=== PATIENT | male | born 1990 | race Caucasian/White ===

== ENCOUNTER 2018-08-01 12:54 | Emergency (ER) | payer MEDICAID ==
[2018-08-01 13:10] VITALS: BP 134/82; PULSE 96; RESP 18; TEMP 98.3
[2018-08-01] MEDS ORDERED: KETOROLAC 30 MG/ML 1 ML VIAL IM STA (13:41)
--- NOTE | 2018-08-01 13:42 | ED ---
General Adult HPI - General Chief complaint: Extremity Injury, Upper Stated complaint: Shoulder pain Time Seen by Provider: 08/01/18 13:38 Source: patient, RN notes reviewed, old records reviewed Mode of arrival: ambulatory Limitations: no limitations - History of Present Illness Initial comments: 28-year-old male presenting for evaluation of right shoulder pain. Patient states his symptoms began yesterday morning, woke with this pain. Denies any specific injury. Denies fever or chills. States the pain is worse with movement of the shoulder. Patient has no chronic medical problems. He states that approximately one year ago he had similar episode of right shoulder pain which was resolved with anti-inflammatory medication. Patient is not a diabetic. He is not on any medication currently. Denies fever or chills, denies diaphoresis, denies chest pain or dyspnea. Denies any symptoms in his hand and forearm. - Related Data Previous Rx's Medication Instructions Recorded Ibuprofen [Motrin] 600 mg PO Q8HR PRN #24 tab 08/01/18 Allergies Allergy/AdvReac Type Severity Reaction Status Date / Time No Known Allergies Allergy Verified 08/01/18 13:10 Review of Systems ROS Statement: Those systems with pertinent positive or pertinent negative responses have been documented in the HPI. ROS Other: All systems not noted in ROS Statement are negative. Past Medical History Past Medical History: No Reported History History of Any Multi-Drug Resistant Organisms: None Reported Past Surgical History: No Surgical Hx Reported Past Psychological History: No Psychological Hx Reported Smoking Status: Never smoker Past Alcohol Use History: Occasional Past Drug Use History: None Reported General Exam Limitations: no limitations General appearance: alert, in no apparent distress Head exam: Present: atraumatic, normocephalic Eye exam: Present: normal appearance, PERRL ENT exam: Present: normal exam Neck exam: Present: normal inspection. Absent: tenderness, meningismus Respiratory exam: Present: normal lung sounds bilaterally. Absent: respiratory distress, wheezes Cardiovascular Exam: Present: regular rate, normal rhythm GI/Abdominal exam: Present: soft. 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 There is limited range of motion secondary to pain. Patient is afebrile and otherwise well-appearing. He 's had a similar episode to this in the past that resolved with anti- inflammatories. X-ray is negative for any acute bony abnormality. I will start the patient on Motrin, he will pay very close attention to symptoms including worsening pain, development of fever or failure to respond to Motrin. I Have a very low suspicion at this time for septic arthritis although this is still on the differential. Patient did receive good anticipatory guidance and will repeat present within development of signs and symptoms consistent with septic arthritis. Disposition Clinical Impression: Right shoulder strain Disposition: HOME SELF-CARE Condition: Good Prescriptions: Ibuprofen [Motrin] 600 mg PO Q8HR PRN #24 tab PRN Reason: Pain Is patient prescribed a controlled substance at d/c from ED?: No Referrals: Trever Addison DO [Primary Care Provider] - 1-2 days Time of Disposition: 14:19
--- NOTE | 2018-08-01 14:09 | XR ---
EXAMINATION TYPE: XR shoulder complete RT , 3 VIEWS DATE OF EXAM ORDERED: 08/01/2018 HISTORY: Pain. COMPARISON: None. FINDINGS: No fracture, dislocation or other acute osseous lesion is seen. IMPRESSION: NORMAL RIGHT SHOULDER.
== END 2018-08-01 14:28 | disposition home or self-care (01) ==
LOC: EC 12:54
DX: S46.911A Strain of unspecified muscle, fascia and tendon at shoulder and upper arm level, right arm, initial encounter (principal); X58.XXXA Exposure to other specified factors, initial encounter
CPT/HCPCS: 99284; 96372; 73030; J1885

== ENCOUNTER 2023-01-26 21:50 | Emergency (ER) | payer MEDICAID, OTHER ==
[2023-01-26 22:06] VITALS: BP 135/87; PULSE 70; RESP 18
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
== END 2023-01-26 23:02 | disposition home or self-care (01) ==
LOC: EC 21:50
DX: Z04.1 Encounter for examination and observation following transport accident (principal); V89.2XXA Person injured in unspecified motor-vehicle accident, traffic, initial encounter; Y92.410 Unspecified street and highway as the place of occurrence of the external cause
CPT/HCPCS: 99283